=== PATIENT | male | born 1940 ===

== ENCOUNTER 2016-08-01 14:22 | Emergency (ER) | payer MEDICARE ==
[~2016-08-01] VITALS: Ht 177.8 cm; Wt 72.6 kg
== END 2016-08-01 17:53 | disposition short-term general hospital (02) ==
LOC: ED 14:22
DX: S72.34 Spiral fracture of shaft of femur (principal); W01.0XXA Fall on same level from slipping, tripping and stumbling without subsequent striking against object, initial encounter; Y93.01 Activity, walking, marching and hiking; Y92.89 Other specified places as the place of occurrence of the external cause; Y99.8 Other external cause status